=== PATIENT | female | born 2005 | race Caucasian/White ===

== ENCOUNTER 2025-01-12 04:02 | Emergency (ER) | payer BC ==
[2025-01-12 04:19] LABS: BASOPHILS ABSOLUTE AUTO 0.07 K/uL (0.00-0.30); BASOPHILS PERCENT AUTO 0.5 % (0.0-1.0); EOSINOPHILS ABSOLUTE AUTO 0.21 K/uL (0.00-0.70); EOSINOPHILS PERCENT AUTO 1.6 % (0.0-5.0); IMMATURE GRAN ABSOLUTE AUTO 0.03 K/uL (0.00-0.05); IMMATURE GRAN PERCENT AUTO 0.2 % (0.0-0.4); LYMPHOCYTES ABSOLUTE AUTO 3.38 K/uL (2.00-8.80); LYMPHOCYTES PERCENT AUTO 25.7 % (50.0-65.0); MEAN PLATELET VOLUME 8.5 fL (9.4-12.3); MONOCYTES ABSOLUTE AUTO 1.35 K/uL (0.10-1.40); MONOCYTES PERCENT AUTO 10.3 % (2.0-10.0); NEUTROPHILS ABSOLUTE AUTO 8.13 K/uL (1.50-8.50); NEUTROPHILS PERCENT AUTO 61.7 % (35.0-45.0); NRBC ABSOLUTE 0.00 K/uL (0.00-0.03); NRBC PERCENT 0.0 /100WBC (0.0-0.2); PLATELET COUNT,PLT 341 K/uL (150-400); RED BLOOD CELL COUNT 4.86 M/uL (4.10-5.30); WHITE BLOOD CELL COUNT,WBC 13.17 K/uL (4.5-13.5)
[2025-01-12 04:54] LABS: A/G RATIO 1.2 (0.9-1.6); ALANINE AMINOTRANSFERASE,ALT 31 IU/L (14-63); ASPARTATE AMNIOTRANSFERASE,AST 21 IU/L (15-37); BILIRUBIN TOTAL 0.4 mg/dL (0.2-1.0); BLOOD UREA NITROGEN,BUN 14 mg/dL (7.0-18.0); CARBON DIOXIDE,CO2 27.4 mmol/L (21.0-32.0); CHLORIDE,CL 105 mmol/L (98-107); CREATININE 0.9 mg/dL (0.6-1.0); EST CRCL DRUG DOSING (CG) 97.77 mL/min; GLUCOSE RANDOM 103 mg/dL (74-106); POTASSIUM,K 3.3 mmol/L (3.5-5.1); PROTEIN TOTAL,TP 7.2 g/dL (6.4-8.2); SODIUM,NA 142 mmol/L (136-145)
[2025-01-12 04:58] LABS: ESTIMATED GFR 94 mL/min (>60); HCG QUANTITATIVE < 1.0 mIU/mL
[2025-01-12] MEDS: Ketorolac 30 MG/ML SDV IVPUSH ONE (05:07)
[2025-01-12] MEDS: Iopamidol 755 MG/ML 500 ML Multipack Bottle IVPUSH STA (05:30)
[2025-01-12 05:43] LABS: APPEARANCE,URINE HAZY; GLUCOSE,URINE NEGATIVE (NEGATIVE); OCCULT BLOOD,URINE NEGATIVE (NEGATIVE)
[2025-01-12] MEDS ORDERED: cefTRIAXone 1 GM in Lidocaine 1% 2.1 ML IM ONE (06:15)
[2025-01-12 06:16] LABS: EPITHELIAL CELLS,URINE MODERATE (NONE-FEW)
== END 2025-01-12 06:51 | disposition home or self-care (01) ==
LOC: MW.ED 04:02
DX: K52.9 Noninfective gastroenteritis and colitis, unspecified (principal); Z79.899 Other long term (current) drug therapy
CPT/HCPCS: 36415; 74177; 80053; 81001; 83690; 84702; 85025; 93005; 96361; 96372; 96374; 99284; J0696; J1885; J2003; J7030; Q9967